=== PATIENT | male | born 1985 | race Caucasian/White ===

== ENCOUNTER 2017-06-01 13:58 | Emergency (ER) | payer SELFPAY ==
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
[2017-06-01] MEDS ORDERED: ceFAZolin 2 GM in NS 100 ML IV ONE (14:39)
[2017-06-01] MEDS ORDERED: ceFAZolin 2 GM/DEXTROSE 100 ML IV ONE (15:00)
[2017-06-01 16:35] VITALS: BP 154/92; PULSE 87; RESP 18; TEMP 97.9; O2SAT 97
== END 2017-06-01 16:34 | disposition home or self-care (01) ==
PROC: 3E0T3BZ Introduction of Anesthetic Agent into Peripheral Nerves and Plexi, Percutaneous Approach (ICD-10-PCS; principal; 2017-06-01)
DX: S62.633B Displaced fracture of distal phalanx of left middle finger, initial encounter for open fracture (principal); F17.200 Nicotine dependence, unspecified, uncomplicated; W34.00XA Accidental discharge from unspecified firearms or gun, initial encounter; Y93.89 Activity, other specified
CPT/HCPCS: 96365; J0690; L3925